=== PATIENT | female | born 1990 | race Two or more races ===

== ENCOUNTER 2019-03-02 16:34 | Emergency (ER) | payer OTHER ==
[~2019-03-02] VITALS: Ht 152.4 cm; Wt 81.4 kg
--- NOTE | 2019-03-02 17:38 | NUR ---
FROM LOBBY TO ROOM AT THIS TIME
--- NOTE | 2019-03-02 18:55 | NUR ---
PT. IS OMANI SPEAKING A & O X 4 WITH C/O ABD. PAIN X 2 WEEKS. PT. STATES SHE IS TAKING ABX FOR A STD. PT.'S ABD. IS SOFT AND FLAT WITH BS + X 4 QUADS. MM ARE PINK AND MOIST WITH PULSES +[address] MACARIO IS AT THE BEDSIDE. REPORT WAS GIVEN.
[2019-03-02] MEDS ORDERED: IBUPROFEN 200 MG TABLET PO ONE (19:00)
[2019-03-02] MEDS ORDERED: IBUPROFEN 200 MG TABLET ONE (19:03)
--- NOTE | 2019-03-02 19:07 | NUR ---
PT MEDICATED FOR PAIN. PT TO US.
[2019-03-02 19:10] LABS: BASOPHILS # (AUTO) 0.05 x10^3/uL (0-0.1); BASOPHILS % (AUTO) 0 % (0-1); EOSINOPHILS # (AUTO) 0.07 x10^3/uL (0-0.4); EOSINOPHILS % (AUTO) 1 % (1-7); LYMPHOCYTES # (AUTO) 3.01 x10^3/uL (1-3.4); LYMPHOCYTES % (AUTO) 21 % (22-44); MD NO; MEAN CORPUSCULAR HEMOGLOBIN 26.9 pg (27.0-34.8); MEAN CORPUSCULAR HGB CONC 33.7 g/dL (32.4-35.8); MEAN CORPUSCULAR VOLUME 79.7 fL (80-100); MEAN PLATELET VOLUME 9.9 fL (7.4-10.4); MONOCYTES # (AUTO) 0.53 x10^3/uL (0.2-0.8); MONOCYTES % (AUTO) 4 % (2-9); NEUTROPHILS # (AUTO) 10.97 x10^3/uL (1.8-6.8); NEUTROPHILS % (AUTO) 75 % (42-75); PLATELET COUNT 258 x10^3/uL (130-400); RED BLOOD COUNT 5.49 x10^6/uL (3.82-5.3); RED CELL DISTRIBUTION WIDTH 14.4 % (9.6-15.2)
[2019-03-02 19:21] LABS: ALBUMIN 4.2 g/dL (3.4-5.0); ANION GAP 7 mmol/L (5-15); CALCIUM 9.3 mg/dL (8.5-10.1); CHLORIDE 106 mmol/L (98-107); CREATININE 0.64 mg/dL (0.55-1.02)
--- NOTE | 2019-03-02 19:45 | NUR ---
UA SENT TO LAB. PT RESTING WITH NO NEEDS AT THIS TIME. FAMILY AT BEDSIDE
[2019-03-02 19:55] LABS: MICROSCOPIC NOT IND
[2019-03-02 19:58] LABS: CULTURE INDICATED? NO
[2019-03-02] MEDS ORDERED: CEFTRIAXONE 250 MG IM ONE (20:30)
[2019-03-02] MEDS ORDERED: AZITHROMYCIN 500 MG TABLET ONE (20:30)
[2019-03-02] MEDS ORDERED: AZITHROMYCIN 500 MG TABLET PO ONE (20:30)
[2019-03-02] MEDS ORDERED: CEFTRIAXONE 250 MG ONE (20:30)
--- NOTE | 2019-03-02 20:41 | NUR ---
PT GIVEN ABX. PT VERBALIZED UNDERSTANDING OF DISCHARGE AND FOLLOW UP INSTRUCTIONS. PT GETTING DRESSED.
[2019-03-02 20:43] VITALS: BP 117/65
== END 2019-03-02 20:45 | disposition home or self-care (01) ==
LOC: ED 19:44
DX: N83.201 Unspecified ovarian cyst, right side (principal); N83.291 Other ovarian cyst, right side; N76.0 Acute vaginitis
CPT/HCPCS: 36415; 76830; 80048; 81003; 82040; 84703; 85025; 96372; 99284; J0696